=== PATIENT | female | born 1980 | race Caucasian/White ===

== ENCOUNTER 2017-09-07 08:12 | Day surgery (SDC) | payer BC ==
[~2017-09-07] VITALS: Ht 167.6 cm; Wt 108.6 kg
[~2017-09-07 08:12] MED LIST: IRON65TA PO; LR 1,000 ML IV ONE
[2017-09-07 09:22] LABS: CONTROL LINE UCG INT CTR LINE PRESENT
[2017-09-07] MEDS ORDERED: MIDAZOLAM INJ 2 MG/2 ML VIAL (J2250) As Ordered ONE (09:36)
[2017-09-07] MEDS ORDERED: fentaNYL 100 MCG/2 ML INJECTION (J3010) As Ordered ONE ×2 (09:37→10:52)
[2017-09-07] MEDS ORDERED: LIDOCAINE W/EPINEPHRINE 1% 20ML VIAL As Ordered ONE (10:16)
[2017-09-07] MEDS ORDERED: EPINEPHrine 1MG/ML INJ 30ML MD-VIAL As Ordered ONE (10:16)
[2017-09-07] MEDS ORDERED: LIDOCAINE 2% INJ 100 MG/5 ML SDV (FOR ANES.) As Ordered ONE (11:52)
[2017-09-07] MEDS ORDERED: ONDANSETRON 4MG/2ML VIAL (J2405) As Ordered ONE (11:52)
[2017-09-07] MEDS ORDERED: PROPOFOL 200 MG/20 ML VIAL As Ordered ONE (11:52)
[2017-09-07] MEDS ORDERED: GLYCOPYRROLATE INJ 0.2 MG/ML 2 ML VIAL As Ordered ONE (11:52)
[2017-09-07] MEDS ORDERED: dexameTHASONE 4 MG/ML 1ML VIAL (J1100) As Ordered ONE (11:52)
[2017-09-07] MEDS ORDERED: ROCURONIUM BROMIDE 50 MG/5 ML VIAL As Ordered ONE (11:52)
[2017-09-07] MEDS ORDERED: NEOSTIGMINE 10 MG/10 ML VIAL (J2710) As Ordered ONE (11:52)
[2017-09-07] MEDS ORDERED: LR 1,000 ML IV SCH ×2 (12:00→12:15)
[2017-09-07] MEDS ORDERED: fentaNYL 100 MCG/2 ML INJECTION (J3010) IV PRN (12:00)
[2017-09-07] MEDS ORDERED: ONDANSETRON 4MG/2ML VIAL (J2405) IV PRN (12:00)
[2017-09-07] MEDS ORDERED: PERCOCET 5MG/325MG TAB PO PRN (12:15)
[2017-09-07 12:45] VITALS: BP 122/76
--- NOTE | 2017-09-08 11:22 | RO ---
DATE OF PROCEDURE: 09/07/2017 PREPROCEDURE DIAGNOSIS: Nasal septal deviation, chronic rhinitis, nasal polyp, chronic sinusitis. POSTPROCEDURE DIAGNOSIS: Nasal septal deviation, chronic rhinitis, nasal polyp, chronic sinusitis. PROCEDURE: Septoplasty, bilateral antrostomy, bilateral turbinectomy, right polypectomy. SURGEON: Dr. Fidel Freeman POLE CLASSIFIER: ANESTHESIA: ESTIMATED BLOOD LOSS: DESCRIPTION OF OPERATION: Under general anesthesia with the patient intubated, the patient was draped in the usual manner. I used pledgets of adrenaline 1:100,000 and infiltrated with lidocaine and epinephrine. I started with the left side making an incision anterior and an elevated subperichondrial plane. I removed a portion of the quadrangular cartilage, ethmoid plate and maxillary crest which were deviated. Once this was done the septum was straight. That dissection was closed with a #4-0 Chromic suture. Then I trimmed part of the middle turbinate medially especially on the left side where there was a kit bullosa. I used the balloon to catheterize the natural sinus ostium then I expanded the balloon. I then removed a portion of the uncinate process and opened up the antrostomy a bit larger. That same procedure performed on both sides. Patient tolerated the procedure well. Less than 20 mL estimated blood loss. Packing was not placed. Patient was extubated and transferred to the recovery room in excellent condition.
== END 2017-09-07 13:20 | disposition home or self-care (01) ==
LOC: M SDC 08:12
PROVIDERS: ATTEND Otolaryngology
DX: J32.4 Chronic pansinusitis (principal); J34.2 Deviated nasal septum; J33.9 Nasal polyp, unspecified; R01.1 Cardiac murmur, unspecified; D64.9 Anemia, unspecified; I34.1 Nonrheumatic mitral (valve) prolapse; Z88.0 Allergy status to penicillin; Z88.5 Allergy status to narcotic agent; Z79.899 Other long term (current) drug therapy
CPT/HCPCS: 30520; 30999; 31256; 84703; 88300; 88305; J1100; J2250; J2405; J2710; J3010

== ENCOUNTER → 2019-08-08 | Outpatient (REF) | payer BC ==
[~2019-08-08] MED LIST changes: -LR 1,000 ML IV ONE
[2019-08-11 14:16] LABS: HPV HYBRID CAPTURE II Negative (Negative)
== END ==
LOC: M LAB LCGH 12:10
PROVIDERS: ATTEND Nurse Practitioner Adult Health
DX: Z12.4 Encounter for screening for malignant neoplasm of cervix (principal)
CPT/HCPCS: 87624; G0123